=== PATIENT | male | born 1980 | race Caucasian/White ===

== ENCOUNTER 2021-01-08 01:09 | Emergency (ER) | payer OTHER ==
[~2021-01-08] VITALS: Ht 170.2 cm; Wt 81.7 kg
[2021-01-08 04:51] VITALS: BP 118/72
--- NOTE | 2021-01-08 15:27 | EKG ---
[place] [address] ELECTROCARDIOGRAM REPORT Name: SPIKE MORA Room: [facility] ([place], [place])#: [id number] Admission: 01/08/21 Attend Phys: Discharge: 01/08/21 Date of : 76 Date of Service: 01/08/213 Report #: [id number] THIS REPORT FOR: //name// [facility] ED Test Date: 2021-01-08 Test Time: 01:23:35 Pat Name: SPIKE FLOYDNAMRATARobert Department: Room: Gender: Radio Equipment Repairer: FABIANO : 1980 Requested By: Rosalie Horvath Order Number: [id number] Rishi MD: Marcelo Hurst Measurements Intervals [place] Rate: 78 P: 59 AL: 125 QRS: 17 QRSD: 95 T: 19 QT: 378 QTc: 431 Interpretive Statements Sinus rhythm No previous ECG available for comparison Electronically Signed On 01-08-2021 15:27:37 CDT by Marcelo Hurst [email or web address] <ELECTRONICALLY SIGNED> By: Marcelo Hurst MD, [facility] 01/08/21 1527 2 012 Marcelo Hurst MD, FACC /EPI
== END 2021-01-08 04:51 | disposition home or self-care (01) ==
LOC: M.ERS 01:09
DX: F15.10 Other stimulant abuse, uncomplicated (principal); E11.9 Type 2 diabetes mellitus without complications; F25.9 Schizoaffective disorder, unspecified; F17.210 Nicotine dependence, cigarettes, uncomplicated

== ENCOUNTER 2021-05-23 08:44 | Emergency (ER) | payer OTHER ==
[~2021-05-23] VITALS: Ht 170.2 cm; Wt 81.7 kg
[2021-05-23] MEDS ORDERED: AUGMENTIN 875-1 EACH PO (09:22)
[2021-05-23] MEDS ORDERED: PERIDEX15 ML SWISH&SPIT (09:22)
[2021-05-23 10:13] VITALS: BP 140/86
== END 2021-05-23 10:19 | disposition home or self-care (01) ==
LOC: M.ERS 08:44
DX: K02.9 Dental caries, unspecified (principal); Z20.822 Contact with and (suspected) exposure to COVID-19; J02.9 Acute pharyngitis, unspecified; F25.9 Schizoaffective disorder, unspecified; E11.9 Type 2 diabetes mellitus without complications

== ENCOUNTER 2021-05-26 09:17 | Emergency (ER) | payer OTHER ==
[~2021-05-26] VITALS: Ht 170.2 cm; Wt 77.1 kg
[~2021-05-26 09:17] MED LIST: AUGMENTIN 875-1 EACH PO; PERIDEX15 ML SWISH&SPIT
[2021-05-26] MEDS ORDERED: PROTONIX40 M2 PO (09:26)
[2021-05-26] MEDS ORDERED: NEURONTIN 300M300 M2 PO (09:26)
[2021-05-26] MEDS ORDERED: IBU800 MG PO (09:26)
[2021-05-26] MEDS ORDERED: METFORMIN HCL500 M3 PO (09:26)
[2021-05-26] MEDS ORDERED: LIPITOR40 MG PO (09:27)
[2021-05-26 09:35] VITALS: BP 141/103
== END 2021-05-26 09:36 | disposition home or self-care (01) ==
LOC: M.ERS 09:17
DX: R19.7 Diarrhea, unspecified (principal); E11.40 Type 2 diabetes mellitus with diabetic neuropathy, unspecified; F15.10 Other stimulant abuse, uncomplicated